=== PATIENT | male | born 1970 | race American Indian/Alaskan Native ===

== ENCOUNTER 2017-05-27 13:34 | Emergency (ER) | payer BC ==
[2017-05-27 13:41] VITALS: BMI 23.7
[2017-05-27 13:46] VITALS: BP 117/76; PULSE 68; RESP 18; TEMP 98.7; O2SAT 98
--- NOTE | 2017-05-27 13:52 | ED PDOC ---
Arrival/HPI - General Chief Complaint: Dental Pain Time Seen by Provider: 05/27/17 13:46 Historian: Patient - History of Present Illness Narrative History of Present Illness (Text): 05/27/17 13:47 47 y/o male, no significant pmh, nkda, c/o lt. lower molar pain with bilateral ear and plantar sole feet pain. Pt. 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 Pt. is here today because he has lt. lower molar pain for the past 3 days, stated that he also has bilateral ear lobe pain after tried the new pair of ear rings, no fever or chills, no headache or night sweat, no rash, no change in vision, no dizziness, no palpitation, no other medical or psychological complaints. Past Medical History - Provider Review Nursing Documentation Reviewed: Yes - Infectious Disease Hx of Infectious Diseases: None - Psychiatric Hx Depression: No Hx Substance Use: Yes - Anesthesia Hx Anesthesia: No Family/Social History - Physician Review Nursing Documentation Reviewed: Yes Family/Social History: Unknown Family HX Smoking Status: Never Smoked Hx Alcohol Use: No (PT DENIES) Hx Substance Use: Yes Substance used: [employer] Allergies/Home Meds Allergies/Adverse Reactions: Allergies No Known Allergies Allergy (Verified 01/16/17 08:27) Review of Systems - Review of Systems Constitutional: absent: Fatigue, Fevers Eyes: absent: Vision Changes ENT: Other (dental pain). absent: Hearing Changes, Sore Throat Respiratory: absent: SOB, Cough Cardiovascular: absent: Chest Pain Gastrointestinal: absent: Abdominal Pain, Diarrhea, Nausea, Vomiting Musculoskeletal: absent: Arthralgias, Back Pain, Myalgias Skin: absent: Rash, Pruritis, Skin Lesions, Laceration, Abscess, Ulcer, Cellulitis Neurological: absent: Headache Physical Exam Vital Signs Reviewed: Yes Vital Signs Temp Pulse Resp BP Pulse Ox 05/27/17 13:45 98.7 F 68 18 117/76 98 Temperature: Afebrile Blood Pressure: Normal Pulse: Regular Respiratory Rate: Normal Appearance: Positive for: Well-Appearing, Non-Toxic, Comfortable Pain Distress: Moderate Mental Status: Positive for: Alert and Oriented X 3 - Systems Exam Head: Present: Atraumatic, Normocephalic Pupils: Present: PERRL Extroacular Muscles: Present: EOMI Conjunctiva: Present: Normal Ears: Present: NORMAL TM, Normal Canal, Other (mild eryuthematous noted on the surrounding of the lower lobe piercing region with no cellulitis or streaking, no ulcers. ). No: Erythema, TM Bulging, Fluid Mouth: Present: Moist Mucous Membranes, Other (There is visible canker sore on the lt. sided buccal mucosa and dental caries noted, no gingivitis or gingival abscess, uvula midilne with no deviation, airway patent. ) Pharnyx: No: ERYTHEMA, EXUDATE, TONSILS ENLARGED, Peritonsilar Swelling, Uvular Deviation Neck: Present: Normal Range of Motion Respiratory/Chest: Present: Clear to Auscultation, Good Air Exchange. No: Respiratory Distress, Accessory Muscle Use Cardiovascular: Present: Regular Rate and Rhythm, Normal S1, S2. No: Murmurs Abdomen: Present: Normal Bowel Sounds. No: Tenderness, Distention, Peritoneal Signs Back: Present: Normal Inspection Upper Extremity: Present: Normal Inspection. No: Cyanosis, Edema Lower Extremity: Present: Normal Inspection, Other (Bilateral lower extremities : no tenderness or swelling, no deformities, negative mihir and contreras signs, FROM without limitations, sensation intact, motor 5/5, +DPPT pulses, capillary refill< 2 seconds, neurovascular intact. ). No: Edema Neurological: Present: GCS=15, CN II-XII Intact, Speech Normal Skin: Present: Warm, Dry, Normal Color. No: Rashes Psychiatric: Present: Alert, Oriented x 3, Normal Insight, Normal Concentration Medical Decision Making ED Course and Treatment: 05/27/17 14:40 -Toradol ordered for pain and he feels better, will discharge home. -Discharge home with augmentin, motrin, triamcinolone dental paste, soft food diet, follow up with your own pmd and ENT/camera supervisor within 2 days, return to the ER for any new or worsening signs or symptoms. - Medication Orders Current Medication Orders: Discontinued Medications Ketorolac Tromethamine (Toradol) 60 mg IM STAT STA Stop: 05/27/17 13:53 Last Admin: 05/27/17 14:02 Dose: 60 mg [facility] Pain Assessment Document 05/27/17 14:02 TA (Rec: 05/27/17 14:02 MARTI [id number]) Pain Reassessment Is this a pain reassessment? No Sleep Is patient sleeping during reassessment? No Presence of Pain Presence of Pain Yes Pain Scale Used Pain Scale Used Numeric Location Pain Location Body Site Jaw Description Description Constant Intensity of Pain at present 8 Acceptable Level of Pain 0 IM Administration Charges Document 05/27/17 14:02 MARTI (Rec: 05/27/17 14:02 TA [id number]) Charges for Administration # of IM Administrations 1 - PA / CARTOGRAPHY/MAPPING TECHNICIAN / Resident Statement / has reviewed & agrees with the documentation as recorded. Disposition/Present on Arrival - Present on Arrival Any Indicators Present on Arrival: No History of DVT/PE: No History of Uncontrolled Diabetes: No Urinary Catheter: No History of Decub. Ulcer: No History Surgical Site Infection Following: None - Disposition Have Diagnosis and Disposition been Completed?: Yes Diagnosis: Dental caries, Canker sore, Ear pain Disposition: HOME/ ROUTINE Disposition Time: 14:42 Patient Plan: Discharge Condition: GOOD Additional Instructions: -Discharge home with augmentin, motrin, triamcinolone dental paste, soft food diet, follow up with your own pmd and ENT/camera supervisor within 2 days, return to the ER for any new or worsening signs or symptoms. Prescriptions: Amoxicillin/Clavulanate [Augmentin 875 MG-125 MG] 1 tab PO BID #20 tab Ibuprofen [Motrin] 600 mg PO QID PRN #30 tab PRN Reason: Other RX: Triamcinolone 0.1% [Kenalog 0.1% in Orabase] 1 appl MM BID #15 g Referrals: [facility] [Outside] - Follow up with primary Thor Nassar DO [Staff Provider] - Follow up with primary Forms: WORK NOTE
== END 2017-05-27 15:06 | disposition home or self-care (01) ==
LOC: ED 13:34
DX: K02.9 Dental caries, unspecified (principal); K12.0 Recurrent oral aphthae; H92.03 Otalgia, bilateral
CPT/HCPCS: 96372; 99282; J1885

== ENCOUNTER 2017-08-30 18:46 | Emergency (ER) | payer BC ==
[2017-08-30 19:57] VITALS: BMI 24.6
[2017-08-30 19:58] VITALS: RESP 18; TEMP 98.4
--- NOTE | 2017-08-30 20:11 | ED PDOC ---
Arrival/HPI - General Chief Complaint: ENT Problem Time Seen by Provider: 08/30/17 20:03 Historian: Patient - History of Present Illness Narrative History of Present Illness (Text): 08/30/17 20:07 This 47 yo male presents to this ED c/o sore throat x 3 days. Patient also noted painful cervical lymph nodes. Patient denies fever, recent travel, sob, [place], cp, abdominal pain or urinary symptoms. Time/Duration: Other (see hpi) Context: Home Past Medical History - Provider Review Nursing Documentation Reviewed: Yes - Infectious Disease Hx of Infectious Diseases: None - Cardiac Hx Cardiac Disorders: No - Pulmonary Hx Respiratory Disorders: No - Neurological Hx Neurological Disorder: No - HEENT Hx HEENT Disorder: No - Renal Hx Renal Disorder: No - Endocrine/Metabolic Hx Endocrine Disorders: No - Hematological/Oncological Hx Blood Disorders: No - Integumentary Hx Dermatological Disorder: No - Musculoskeletal/Rheumatological Hx Musculoskeletal Disorders: No - Gastrointestinal Hx Gastrointestinal Disorders: No - Genitourinary/Gynecological Hx Genitourinary Disorders: No - Psychiatric Hx Depression: No Hx Substance Use: Yes - Anesthesia Hx Anesthesia: No Family/Social History - Physician Review Nursing Documentation Reviewed: Yes Family/Social History: Other (noncontributory) Smoking Status: Never Smoked Hx Alcohol Use: No (PT DENIES) Hx Substance Use: Yes Substance used: marijuanna Allergies/Home Meds Allergies/Adverse Reactions: Allergies No Known Allergies Allergy (Verified 08/30/17 19:57) Review of Systems - Review of Systems Constitutional: Normal. absent: Fatigue, Weight Change, Fevers Eyes: Normal ENT: Sore Throat Respiratory: Normal. absent: SOB, Cough Cardiovascular: Normal Gastrointestinal: Normal Genitourinary Male: Normal Musculoskeletal: Normal Skin: Normal. absent: Rash Neurological: Normal. absent: Headache, Dizziness, Focal Weakness, Gait Changes , Speech Changes, Facial Droop Endocrine: Normal Hemo/Lymphatic: Normal Psychiatric: Normal Physical Exam Vital Signs Temp Pulse Resp BP Pulse Ox 08/30/17 19:58 98.4 F 72 18 116/81 98 Temperature: Afebrile Blood Pressure: Normal Pulse: Regular Respiratory Rate: Normal Appearance: Positive for: Well-Appearing, Non-Toxic, Comfortable Pain Distress: None Mental Status: Positive for: Alert and Oriented X 3 - Systems Exam Head: Present: Atraumatic, Normocephalic Pupils: Present: PERRL Extroacular Muscles: Present: EOMI Conjunctiva: Present: Normal Ears: Present: Normal, NORMAL TM Mouth: Present: Moist Mucous Membranes, Normal Lips, Normal Tounge, Normal Teeth. No: Drooling Pharnyx: Present: ERYTHEMA, EXUDATE. No: TONSILS ENLARGED, Peritonsilar Swelling, Uvular Deviation, Muffled/Hoarse Voice, Strider, Soft Palate/Uvular Edema Nose (External): Present: Atraumatic Nose (Internal): Present: Normal Inspection Neck: Present: Normal Range of Motion, Lymphadenopathy (mild left cervical reactive lymphadenopathy). No: Meningeal Signs Upper Extremity: Present: Normal Inspection, Normal ROM Lower Extremity: Present: Normal Inspection, Normal ROM Neurological: Present: GCS=15, CN II-XII Intact, Speech Normal Skin: Present: Warm, Dry, Normal Color. No: Rashes Psychiatric: Present: Alert, Oriented x 3, Normal Insight, Normal Concentration Medical Decision Making ED Course and Treatment: 08/30/17 20:13 Patient feels better. Re-evaluation Time: 20:13 Reassessment Condition: Re-examined, Improved Disposition/Present on Arrival - Present on Arrival Any Indicators Present on Arrival: No History of DVT/PE: No History of Uncontrolled Diabetes: No Urinary Catheter: No History of Decub. Ulcer: No History Surgical Site Infection Following: None - Disposition Have Diagnosis and Disposition been Completed?: Yes Diagnosis: Pharyngitis Disposition: HOME/ ROUTINE Disposition Time: 20:13 Patient Plan: Discharge Patient Problems: Current Active Problems Problem Status Onset Pharyngitis Acute Condition: GOOD Discharge Instructions (ExitCare): Sore Throat, Adult (DC) Additional Instructions: Call private doctor for follow up visit in 1-2 days. Take medication as instructed with food. Return to emergency if symptoms worsen. Prescriptions: Amoxicillin [Amoxil 500 mg Cap] 500 mg PO TID #30 cap Ibuprofen [Motrin] 600 mg PO Q8 PRN #20 tab PRN Reason: Pain, Severe (8-10) Referrals: PCP,NO [Primary Care Provider] - Follow up with primary Harrison Saldaña MD [Staff Provider] - Follow up with primary Forms: [employer] (Mosotho), WORK NOTE
[2017-08-30 22:03] VITALS: BP 116/77; PULSE 80; O2SAT 100
== END 2017-08-30 21:15 | disposition home or self-care (01) ==
LOC: ED 18:46
DX: J02.9 Acute pharyngitis, unspecified (principal)

== ENCOUNTER 2018-03-17 13:05 | Emergency (ER) | payer BC ==
[2018-03-17 13:05] VITALS: BMI 24.6
[2018-03-17 13:20] VITALS: BP 132/62; PULSE 99; RESP 18; TEMP 99.4; O2SAT 97
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
== END 2018-03-17 14:03 | disposition home or self-care (01) ==
LOC: ED 13:05
DX: S16.1XXA Strain of muscle, fascia and tendon at neck level, initial encounter (principal); S46.911A Strain of unspecified muscle, fascia and tendon at shoulder and upper arm level, right arm, initial encounter; Y04.0XXA Assault by unarmed brawl or fight, initial encounter; G62.9 Polyneuropathy, unspecified; J40 Bronchitis, not specified as acute or chronic
CPT/HCPCS: 96372; 99284; J1885

== ENCOUNTER 2018-06-13 20:10 | Emergency (ER) | payer BC ==
[2018-06-13 20:19] VITALS: BMI 23.7
--- NOTE | 2018-06-13 21:05 | ED PDOC ---
Arrival/HPI - General Chief Complaint: Chest Pain Time Seen by Provider: 06/13/18 20:22 Historian: Patient - History of Present Illness Narrative History of Present Illness (Text): 06/13/18 20:50 A 51 year old male presents to the emergency department complaining of chest pain starting 20 minutes prior to arrival. Patient reports he drank two coolers, ate a cheeseburger, sausage, eggs, and homemade fries today. Currently describes pain as faint, with severity range of -1/10. Patient denies any other complaints at this time. No PMD Time/Duration: Prior to Arrival (20 minutes) Past Medical History - Provider Review Nursing Documentation Reviewed: Yes - Infectious Disease Hx of Infectious Diseases: None - Cardiac Hx Cardiac Disorders: No - Pulmonary Hx Respiratory Disorders: No - Neurological Hx Neurological Disorder: No - HEENT Hx HEENT Disorder: No - Renal Hx Renal Disorder: No - Endocrine/Metabolic Hx Endocrine Disorders: No - Hematological/Oncological Hx Blood Disorders: No - Integumentary Hx Dermatological Disorder: No - Musculoskeletal/Rheumatological Hx Musculoskeletal Disorders: No - Gastrointestinal Hx Gastrointestinal Disorders: No - Genitourinary/Gynecological Hx Genitourinary Disorders: No - Psychiatric Hx Depression: No Hx Substance Use: Yes - Anesthesia Hx Anesthesia: No Hx Anesthesia Reactions: No Hx Malignant Hyperthermia: No Family/Social History - Physician Review Nursing Documentation Reviewed: Yes Family/Social History: No Known Family HX Smoking Status: Never Smoked Hx Alcohol Use: No (PT DENIES) Hx Substance Use: Yes Substance used: marijuanna Allergies/Home Meds Allergies/Adverse Reactions: Allergies No Known Allergies Allergy (Verified 04/02/18 10:16) Home Medications: Home Meds Medication Instructions Recorded Confirmed No Known Home Med 06/13/18 06/13/18 Review of Systems - Physician Review All systems were reviewed & negative as marked: Yes - Review of Systems Constitutional: absent: Fevers, Night Sweats Respiratory: absent: SOB Cardiovascular: Chest Pain Gastrointestinal: absent: Abdominal Pain, Diarrhea, Nausea, Vomiting Neurological: absent: Headache, Dizziness Physical Exam - Physical Exam Narrative Physical Exam (Text): Gen: VS reviewed, alert, well developed, well nourished, nontoxic, mild distress. ENT: normal pharynx. Eye: EOMI, PERRL. Neck: no JVD, supple, no adenopathy. CV: regular rate, regular rhythm, no rubs, no murmur, no gallops, S1, S2, pulses equal and strong. Pulm: no distress, clear to auscultation, no wheeze, no rhonchi, breath sounds equal, no rales. Abd: soft, nontender, no guarding, no rebound, no rigidity, normal bowel sounds. Ext: no edema. Skin: good color, no rash, no cyanosis. Psych: responds appropriately to questions, normal affect. Neuro: oriented x 3, CN2-12 intact grossly, motor intact, sensation intact. Appearance: Positive for: Well-Appearing, Non-Toxic, Comfortable Pain Distress: None Mental Status: Positive for: Alert and Oriented X 3 Medical Decision Making ED Course and Treatment: 06/13/18 20:52 Impression: 48 year old male with chest pain. No acute findings on physical examination. Plan: -- Labs -- Chest X-ray -- Reassess and disposition Progress Notes: 06/14/18 01:58 low risk chest pain, heart score = 1, no sig clinical concern for aortic dissection or pe. patient encouraged to quit drugs. - Lab Interpretations I have reviewed the lab results: Yes - RAD Interpretation Radiology Orders: 06/13/18 20:52 CHEST PORTABLE [RAD] Stat - EKG Interpretation EKG Interpretation (Text): 06/13/18 22:57 2023: nsr at 81 bpm, nml qrs, nml axis, lhv with early repol 06/14/18 00:13 0010: nsr at 64 bpm, nml qrs, nml axis, lhv with early repol Interpreted by ED Physician: Yes - Scribe Statement The provider has reviewed the documentation as recorded by the Bhavna Polk Provider Scribe Attestation: All medical record entries made by the Bhavna were at my direction and personally dictated by me. I have reviewed the chart and agree that the record accurately reflects my personal performance of the history, physical exam, medical decision making, and the department course for this patient. I have also personally directed, reviewed, and agree with the discharge instructions and disposition. Disposition/Present on Arrival - Present on Arrival Any Indicators Present on Arrival: No History of DVT/PE: No History of Uncontrolled Diabetes: No Urinary Catheter: No History of Decub. Ulcer: No History Surgical Site Infection Following: None - Disposition Have Diagnosis and Disposition been Completed?: Yes Diagnosis: PCP (phencyclidine) abuse, Chest pain Disposition: HOME/ ROUTINE Disposition Time: 01:59 Patient Plan: Discharge Condition: STABLE Discharge Instructions (ExitCare): Chest Pain (ED), Drug Abuse and Drug Addiction (DC) Additional Instructions: follow up with a pole incisor operator-call today to make an appointment. Referrals: Jed Cespedes MD [Staff Provider] - Follow up with primary [facility] [Outside] - Follow up with primary Forms: [employer] (Lithuanian)
[2018-06-13 21:14] VITALS: TEMP 98.4
[2018-06-13 21:26] LABS: ALB/GLOB RATIO 1.6 (1.1-1.8); ALBUMIN 4.3 g/dL (3.0-4.8); ALT/SGPT 33 U/L (7-56); AST/SGOT 34 U/L (17-59); BLOOD UREA NITROGEN 18 mg/dL (7-21); CALCIUM 9.1 mg/dL (8.4-10.5); GFR NON-AFRICAN AMERICAN > 60; HDL CHOLESTEROL 49 mg/dL (29-60); LIPASE 209 U/L (23-300)
[2018-06-13 21:29] LABS: HEMOGLOBIN 12.3 g/dL (14.0-18.0); MEAN CELL VOLUME 90.6 fl (80.0-105.0); MEAN CORPUSCULAR HEMOGLOBIN 31.2 pg (25.0-35.0); MEAN CORPUSCULAR HGB CONC 34.5 g/dl (31.0-37.0); RBC 3.94 10^6/uL (3.5-6.1); WHITE BLOOD COUNT 6.7 10^3/uL (4.5-11.0)
[2018-06-13 21:30] LABS: BASO % 0.6 % (0.0-3.0); EOS # 0.2 (0.0-0.7); EOS % 2.9 % (1.5-5.0); GRAN # 3.63 (1.4-6.5); GRAN % 54.5 % (50.0-68.0); LYMPH # 2.3 (1.2-3.4); LYMPH % 34.6 % (22.0-35.0); MEAN PLATELET VOLUME 9.5 fl (7.0-11.0); MONO # 0.5 (0.1-0.6); MONO % 7.4 % (1.0-6.0); RED CELL DISTRIBUTION WIDTH 14.3 % (11.5-14.5)
[2018-06-13 21:31] LABS: BASO # 0.04 K/mm3 (0.0-2.0)
[2018-06-13 21:37] LABS: LDL CHOLESTEROL 86 mg/dL (0-129); TROPONIN I < 0.01 ng/mL
[2018-06-14 01:46] LABS: BARBITURATES, UR NEGATIVE (NEGATIVE); BENZODIAZEPINES, UR NEGATIVE (NEGATIVE); OPIATES, UR NEGATIVE (NEGATIVE); PHENCYCLIDINE, UR POSITIVE (NEGATIVE)
[2018-06-14 02:43] VITALS: RESP 18; O2SAT 100
[2018-06-14 02:45] VITALS: BP 115/75; PULSE 75
--- NOTE | 2018-06-14 08:35 | RAD ---
HISTORY: chest pain COMPARISON: None available. TECHNIQUE: Chest, one view. FINDINGS: LUNGS: No focal consolidation. Please note that chest x-ray has limited sensitivity for the detection of pulmonary masses. PLEURA: No significant pleural effusion identified. No definite pneumothorax . CARDIOVASCULAR: Heart size appears within normal limits. No significant atherosclerotic calcification present. OSSEOUS STRUCTURES: Degenerative changes. VISUALIZED UPPER ABDOMEN: Unremarkable. OTHER FINDINGS: None. IMPRESSION: No focal consolidation.
--- NOTE | 2018-06-14 20:18 | CARD ---
APPROVED REPORT Date of service: 06/14/2018 EKG Measurement Heart [id number] <Conclusion> Normal sinus rhythm Early repolarization Normal ECG
--- NOTE | 2018-06-14 20:20 | CARD ---
APPROVED REPORT Date of service: 06/13/2018 EKG Measurement Heart [id number] <Conclusion> Normal sinus rhythm ST elevation, probably due to early repolarization Borderline ECG
== END 2018-06-14 02:14 | disposition home or self-care (01) ==
LOC: ED 20:10
DX: R07.9 Chest pain, unspecified (principal); F16.10 Hallucinogen abuse, uncomplicated
CPT/HCPCS: 71045; 80053; 80061; 83690; 84484; 85025; 93005; 99284; G0480